=== PATIENT | female | born 1930 | race Caucasian/White ===

== ENCOUNTER → 2017-01-05 10:38 | Outpatient (CLI) | payer MEDICARE, BC | END | disposition home or self-care (01) | LOC: D.CT 10:38 | DX: R10.31 Right lower quadrant pain (principal) ==

== ENCOUNTER 2017-10-10 12:19 | Outpatient (CLI) | payer MEDICARE, BC ==
[~2017-10-10] VITALS: Ht 165.1 cm; Wt 77.3 kg
[2017-10-10 14:01] VITALS: BP 132/64; Ht 165.1 cm; Wt 77.3 kg
== END 2017-10-10 13:59 | disposition home or self-care (01) ==
LOC: D.OPS 12:19
DX: M81.0 Age-related osteoporosis without current pathological fracture (principal); Z01.812 Encounter for preprocedural laboratory examination

== ENCOUNTER → 2018-07-03 08:00 | Outpatient (CLI) | payer MEDICARE, BC ==
[2017-10-10 14:01] VITALS: BMI 28.3
== END | disposition home or self-care (01) ==
LOC: D.MAMMO 08:00
PROVIDERS: ATTEND Family Medicine
DX: Z12.31 Encounter for screening mammogram for malignant neoplasm of breast (principal)

== ENCOUNTER → 2018-08-27 08:54 | Outpatient (CLI) | payer MEDICARE, BC ==
[2017-10-10 14:01] VITALS: BMI 28.3
[2018-08-27 10:06] LABS: CHOL - HDL RATIO 2.4 ratio (2.3-4.1); LDL-HDL RATIO 1.3 ratio (1.5-3.5)
== END | disposition home or self-care (01) ==
LOC: D.LAB 08:54
PROVIDERS: ATTEND Family Medicine
DX: Z13.6 Encounter for screening for cardiovascular disorders (principal)

== ENCOUNTER 2018-09-20 10:04 | Outpatient (CLI) | payer MEDICARE, BC ==
[~2018-09-20] VITALS: Ht 161.3 cm; Wt 71.4 kg
[2018-09-20 10:42] VITALS: BP 130/75; Ht 161.3 cm; Wt 71.4 kg
== END 2018-09-20 10:51 | disposition home or self-care (01) ==
LOC: D.OPS 10:04
PROVIDERS: ATTEND Family Medicine
DX: M81.0 Age-related osteoporosis without current pathological fracture (principal)

== ENCOUNTER → 2018-12-05 12:00 | Outpatient (CLI) | payer MEDICARE, BC ==
[2018-09-20 10:42] VITALS: BMI 27.4
[2018-12-05 12:51] LABS: ALBUMIN 3.7 g/dL (3.4-5.0); BILIRUBIN - DIRECT 0.1 mg/dL (0.00-0.30); BILIRUBIN - INDIRECT 0.25 mg/dL (0.00-1.00); BILIRUBIN - TOTAL 0.35 mg/dL (0.2-1.3); PROTEIN - SERUM 7.1 g/dL (6.4-8.2)
== END | disposition home or self-care (01) ==
LOC: D.LAB 12:00
PROVIDERS: ATTEND Family Medicine
DX: R94.5 Abnormal results of liver function studies (principal)

== ENCOUNTER 2019-04-23 13:44 | Outpatient (CLI) | payer MEDICARE, BC ==
[~2019-04-23] VITALS: Ht 161.3 cm; Wt 75.0 kg
[2019-04-23 14:22] VITALS: BP 137/62; Ht 161.3 cm; Wt 75.0 kg
[2019-04-23 14:30] LABS: ALBUMIN 3.8 g/dL (3.4-5.0); ANION GAP 12.7 mmol/L (8-16); BILIRUBIN - TOTAL 0.27 mg/dL (0.2-1.3); CALCIUM 9.2 mg/dL (8.5-10.1); CARBON DIOXIDE 26.6 mmol/L (21.0-32.0); CREATININE - SERUM 0.9 mg/dL (0.6-1.3); POTASSIUM - SERUM 4.3 mmol/L (3.5-5.1); PROTEIN - SERUM 7.7 g/dL (6.4-8.2)
== END 2019-04-23 14:30 | disposition home or self-care (01) ==
LOC: D.OPS 13:44
PROVIDERS: ATTEND Family Medicine
DX: M81.0 Age-related osteoporosis without current pathological fracture (principal); I10 Essential (primary) hypertension; E11.9 Type 2 diabetes mellitus without complications

== ENCOUNTER → 2019-04-29 10:07 | Outpatient (CLI) | payer MEDICARE, BC ==
[2019-04-23 14:22] VITALS: BMI 28.8
== END | disposition home or self-care (01) ==
LOC: D.US 10:07
PROVIDERS: ATTEND Family Medicine
DX: M79.604 Pain in right leg (principal)

== ENCOUNTER → 2019-08-07 22:47 | Outpatient (CLI) | payer MEDICARE, BC ==
[2019-04-23 14:22] VITALS: BMI 28.8
== END | disposition home or self-care (01) ==
LOC: D.MAMMO 11:15
PROVIDERS: ATTEND Family Medicine
DX: Z12.31 Encounter for screening mammogram for malignant neoplasm of breast (principal)

== ENCOUNTER 2019-10-29 11:32 | Outpatient (CLI) | payer MEDICARE, OTHER ==
[2019-04-23 14:22] VITALS: BMI 28.8
== END 2019-10-29 12:10 | disposition home or self-care (01) ==
LOC: D.OPS 11:32
PROVIDERS: ATTEND Family Medicine
DX: M81.0 Age-related osteoporosis without current pathological fracture (principal)